=== PATIENT | male | born 1950 | race Caucasian/White ===

== ENCOUNTER 2016-09-12 18:12 | Emergency (ER) | payer BC ==
[2016-09-12 18:22] VITALS: BMI 27.8
[2016-09-12 19:23] LABS: BASOPHIL 0.9 % (0-2.0); MCH 28.2 pg (25.7-33.7); MCHC 33.3 g/dl (32.0-35.9); MEAN CELL VOLUME 84.6 fl (80-96); NEUTROPHILS 55.8 % (42.8-82.8); PLATELET COUNT 281 K/MM3 (134-434); RDW 11.6 % (11.9-15.9); WHITE BLOOD COUNT 6.3 K/mm3 (4.0-10.0)
[2016-09-12 19:38] LABS: ALBUMIN 4.1 g/dl (3.5-5.0); ALK PHOS 57 U/L (32-92); ANION GAP 5 (8-16); BILIRUBIN,TOTAL 0.5 mg/dl (0.2-1.0); CALCIUM 8.5 mg/dl (8.4-10.2); CO2 26 mmol/L (22-28); CREATININE 0.9 mg/dl (0.6-1.3); GLUCOSE,RANDOM 90 mg/dl (74-106); SGOT/AST 32 U/L (10-42); SGPT/ALT 38 U/L (10-40); TOT PROT 6.5 g/dl (6.4-8.3)
[2016-09-12 19:40] LABS: CPK(DFH) 122 IU/L (38-174)
[2016-09-12 19:49] LABS: TROPONIN I (DFP) < 0.03 ng/ml (0.03-0.50)
--- NOTE | 2016-09-12 20:27 | PDOC ---
History of Present Illness <Fadi Elena - Last Filed: 09/12/16 20:25> - General History Source: Patient, Spouse Exam Limitations: No Limitations - History of Present Illness Initial Comments: 09/12/16 20:28 The patient is a 65-year-old male, with a significant past medical history of hyperlipidemia, hypertension, and GERD(omeprazole), who presents to the emergency department with shortness of breath and intermittent non-radiating chest pain that began yesterday night after exercising. The patient states he feels heaviness in his chest mainly on his left side and occasionally on the right. The patient states he took 2 advil's for the chest pain, with mild relief of symptoms. The patient states he has a history of SOB, but as of yesterday he feels the need to take a deeper breath each time he breathes. He denies any associated palpitations or diaphoresis. He denies fever, chills, coughing, wheezing, headache, or dizziness. Allergies: None reported. Past Surgical History: None reported. Social History: Non-smoker. Denies alcohol or drug use. <Camden Clarke - Last Filed: 09/12/16 20:32> - General Chief Complaint: Shortness of Breath Stated Complaint: SOB Time Seen by Provider: 09/12/16 19:03 Past History - Past Medical History GI Disorders: Yes (acid reflux) HTN: Yes Hypercholesterolemia: Yes - Psycho/Social/Smoking Cessation Hx Anxiety: No Suicidal Ideation: No Smoking History: Former smoker Have you smoked in the past 12 months: No Information on smoking cessation initiated: No Hx Alcohol Use: Yes (weekly) <Fadi Elena - Last Filed: 09/12/16 20:25> <Camden Clarke - Last Filed: 09/12/16 20:32> - Past Medical History Allergies/Adverse Reactions: Allergies Allergy/AdvReac Type Severity Reaction Status Date / Time No Known Allergies Allergy Verified 09/12/16 18:17 Home Medications: Ambulatory Orders Aspirin [Aspirin EC] 81 mg PO DAILY 09/12/16 Omeprazole 20 mg PO BID 09/12/16 Ramipril 5 mg PO DAILY 09/12/16 Rosuvastatin Calcium [Crestor] 20 mg PO DAILY 09/12/16 Review of Systems - Review of Systems Constitutional: Yes: Symptoms Reported, See HPI HEENTM: No: Symptoms Reported Respiratory: Yes: Symptoms reported, Shortness of Breath Cardiac (ROS): No: Symptoms Reported ABD/GI: No: Symptoms Reported : No: Symptoms Reported Musculoskeletal: Yes: Symptoms Reported, See HPI Integumentary: No: Symptoms Reported Neurological: No: Symptoms reported All Other Systems: Reviewed and Negative <Fadi Elena - Last Filed: 09/12/16 20:25> *Physical Exam - Vital Signs Last Vital Signs Temp Pulse Resp BP Pulse Ox 98.1 F 82 18 140/85 100 09/12/16 18:12 09/12/16 18:12 09/12/16 18:12 09/12/16 18:12 09/12/16 18:12 - Physical Exam General Appearance: Yes: Nourished, Appropriately Dressed. No: Apparent Distress HEENT: positive: Normal ENT Inspection Neck: negative: Tender Respiratory/Chest: positive: Lungs Clear, Normal Breath Sounds. negative: Chest Tender, Respiratory Distress Cardiovascular: positive: Regular Rhythm, Regular Rate Gastrointestinal/Abdominal: positive: Normal Bowel Sounds, Soft. negative: Tender Musculoskeletal: negative: CVA Tenderness Extremity: positive: Normal Capillary Refill. negative: Pedal Edema Integumentary: positive: Normal Color Neurologic: positive: Fully Oriented, Alert, Normal Mood/Affect, Normal Response , Motor Strength 5/5 <Fadi Elena - Last Filed: 09/12/16 20:25> - Vital Signs Last Vital Signs Temp Pulse Resp BP Pulse Ox 98.1 F 82 18 140/85 100 09/12/16 18:12 09/12/16 18:12 09/12/16 18:12 09/12/16 18:12 09/12/16 18:12 <Camden Clarke - Last Filed: 09/12/16 20:32> Heart Score/ECG Review - ECG Intrepretation Comment:: 09/12/16 20:31 VENT RATE: 64 bpm IMPRESSION: Normal sinus rhythm. Incomplete right bundle branch block. T wave abnormality, consider inferior ischemia. <Camden Clarke - Last Filed: 09/12/16 20:32> ED Treatment Course - LABORATORY CBC & Chemistry Diagram: 09/12/16 19:05 09/12/16 19:05 - ADDITIONAL ORDERS Additional order review: Laboratory Results 09/12/16 09/12/16 19:05 19:05 Sodium 132 L Potassium 4.2 Chloride 101 Carbon Dioxide 26 Anion Gap 5 L BUN 18 Creatinine 0.9 Creat Clearance w eGFR > 60 Random Glucose 90 Calcium 8.5 Total Bilirubin 0.5 AST 32 ALT 38 Alkaline Phosphatase 57 Creatine Kinase 122 Troponin I < 0.03 L Total Protein 6.5 Albumin 4.1 09/12/16 19:05 RBC 4.28 MCV 84.6 MCHC 33.3 RDW 11.6 L MPV 8.0 Neutrophils % 55.8 Lymphocytes % 31.7 Monocytes % 9.6 Eosinophils % 2.0 Basophils % 0.9 <Fadi Elena - Last Filed: 09/12/16 20:25> - LABORATORY CBC & Chemistry Diagram: 09/12/16 19:05 09/12/16 19:05 - ADDITIONAL ORDERS Additional order review: Laboratory Results 09/12/16 09/12/16 19:05 19:05 Sodium 132 L Potassium 4.2 Chloride 101 Carbon Dioxide 26 Anion Gap 5 L BUN 18 Creatinine 0.9 Creat Clearance w eGFR > 60 Random Glucose 90 Calcium 8.5 Total Bilirubin 0.5 AST 32 ALT 38 Alkaline Phosphatase 57 Creatine Kinase 122 Troponin I < 0.03 L Total Protein 6.5 Albumin 4.1 09/12/16 19:05 RBC 4.28 MCV 84.6 MCHC 33.3 RDW 11.6 L MPV 8.0 Neutrophils % 55.8 Lymphocytes % 31.7 Monocytes % 9.6 Eosinophils % 2.0 Basophils % 0.9 - RADIOLOGY Radiograph Interpretation: 09/12/16 20:30 EXAM: CXR INTERPRETED BY: Dr. Shi REVIEWED BY: Dr. Garcia IMPRESSION: Unremarkable examination. <Camden Clarke - Last Filed: 09/12/16 20:32> *DC/Admit/Observation/Transfer <Fadi Elena - Last Filed: 09/12/16 20:25> - Attestations Scribe Attestion: 09/12/16 20:28 Documentation prepared by Camden Clarke, acting as medical chief technician for Fadi Elena MD. <Camden Clarke - Last Filed: 09/12/16 20:32> Diagnosis at time of Disposition: Intercostal muscle pain - Discharge Dispostion Disposition: HOME Condition at time of disposition: Stable - Patient Instructions Additional Instructions: CALL YOUR DOCTOR TOMORROW RETURN TO ER IF WORSENING OR NEW SYMPTOMS DO NOT WORK OUT UNTIL CLEARED BY YOUR DOCTOR AVOID GOOGLE SEARCHES UNLESS GUIDED BY YOUR DOCTOR
[2016-09-12 20:41] VITALS: BP 129/68; PULSE 77; TEMP 98.2
--- NOTE | 2016-09-13 18:08 | EKG ---
Test Reason : Blood Pressure : / mmHG Vent. Rate : 064 BPM Atrial Rate : 064 BPM P-R Int : 190 ms QRS Dur : 094 ms QT Int : 376 ms P-R-T Axes : 085 025 -12 degrees QTc Int : 387 ms NORMAL SINUS RHYTHM INCOMPLETE RIGHT BUNDLE BRANCH BLOCK T WAVE ABNORMALITY, CONSIDER INFERIOR ISCHEMIA ABNORMAL ECG NO PREVIOUS ECGS AVAILABLE Confirmed by CHERIE YANCEY MD ([id number]) on 09/13/2016 6:08:10 PM Referred By: JOSE RAFAEL Confirmed By:CHERIE YANCEY MD
== END 2016-09-12 20:45 | disposition home or self-care (01) ==
LOC: FER 18:12
DX: R07.82 Intercostal pain (principal); K21.9 Gastro-esophageal reflux disease without esophagitis; Z87.891 Personal history of nicotine dependence; Z79.82 Long term (current) use of aspirin; I10 Essential (primary) hypertension; E78.00 Pure hypercholesterolemia, unspecified
CPT/HCPCS: 36415; 71010-TC; 80053; 82550; 83880; 84484; 85025; 93005; 99284-25